=== PATIENT | female | born 1940 | race Hispanic/Latino ===

== ENCOUNTER 2021-08-18 18:01 | Emergency (ER) | payer MEDICARE, BC, OTHER ==
[~2021-08-18] VITALS: Ht 157.5 cm; Wt 68.5 kg
[~2021-08-18 18:01] MED LIST: HYDROCHLOROTH12.5 M1 PO; LEVAQUIN500 MG PO; LIPITOR20 MG PO; METOPROLOL TART50 MG PO; NEXIUM40 MG PO; NORCO 7.5-3251 EACH; PLAVIX75 MG PO; ZETIA10 MG PO
[2021-08-18] MEDS ORDERED: ULTRAM 50MG50 MG PO (20:20)
[2021-08-18 20:30] VITALS: BP 157/71
== END 2021-08-18 20:30 | disposition home or self-care (01) ==
LOC: FSED 18:19
DX: S20.212A Contusion of left front wall of thorax, initial encounter (principal); S00.83XA Contusion of other part of head, initial encounter; S60.222A Contusion of left hand, initial encounter; S60.221A Contusion of right hand, initial encounter; W01.0XXA Fall on same level from slipping, tripping and stumbling without subsequent striking against object, initial encounter; Y93.01 Activity, walking, marching and hiking; Y92.096 Garden or yard of other non-institutional residence as the place of occurrence of the external cause; I10 Essential (primary) hypertension
CPT/HCPCS: 70450; 70486; 71046; 93005; 99283

== ENCOUNTER 2021-10-19 12:30 | Inpatient (IN) | payer MEDICARE, BC ==
[2021-10-16 09:38] LABS: BASOPHILS % 0.3 % (0.0-1.0); EOSINOPHILS # (AUTO) 0.3 (0.0-0.4); EOSINOPHILS % 3.8 % (0.0-6.0); HEMATOCRIT 35.3 % (34.2-44.1); HEMOGLOBIN 11.1 g/dL (12.0-16.0); LYMPHOCYTES # (AUTO) 2.1 (1.0-3.2); LYMPHOCYTES % 29.7 % (18.0-39.1); MEAN CORPUSCULAR HEMOGLOBIN 29.1 pg (28-32); MEAN CORPUSCULAR HGB CONC 31.4 g/dL (31-35); MEAN CORPUSCULAR VOLUME 92.4 fL (81-99); MONOCYTES # (AUTO) 0.5 (0.2-0.8); MONOCYTES % 6.5 % (4.4-11.3); NEUTROPHILS # (AUTO) 4.2 (2.1-6.9); NEUTROPHILS % 59.4 % (38.7-80.0); PLATELET COUNT 293 x10e3/uL (140-360); RED BLOOD COUNT 3.82 x10e6/uL (3.6-5.1); RED CELL DISTRIBUTION WIDTH 16.5 % (11.7-14.4)
[2021-10-16 10:05] LABS: ANION GAP 15.3 mmol/L (8-16); CALCIUM 9.3 mg/dL (8.4-10.2); CREATININE, SERUM 1.18 mg/dL (0.57-1.11); POTASSIUM 4.3 mmol/L (3.5-5.1)
[~2021-10-19] VITALS: Ht 157.5 cm; Wt 68.0 kg
[~2021-10-19 12:30] MED LIST changes: +LOSARTAN POTASS25 MG PO; +LOVAZA1 GM PO; +METFORMIN HCL500 MG PO; +METOPROLOL SUCC25 MG PO; +OMEPRAZOLE40 MG PO; +TRIAMTERENE-HCTZ1 EA PO; +ULTRAM 50MG50 MG PO
[2021-10-19] MEDS ORDERED: GENTAMICIN 80MG/NS 100 ML 200 ML IV ONE (12:51)
[2021-10-19] MEDS ORDERED: LEVOFLOXACIN 500MG/D5W 100ML 100 ML IV ONE (12:51)
[2021-10-19] MEDS ORDERED: ONDANSETRON HCL INJ 2MG/ML 2ML 2 MG/ML VIAL ONE (12:56)
[2021-10-19] MEDS ORDERED: GLYCOPYRROLATE INJ 0.2 MG/ML VIAL ONE (12:56)
[2021-10-19] MEDS ORDERED: ROCURONIUM BROMIDE 10 MG/ML 5ML VIAL IV ONE (12:56)
[2021-10-19] MEDS ORDERED: PROPOFOL IV EMULSION 10 MG/ML 20 ML VIAL ONE (12:56)
[2021-10-19] MEDS ORDERED: EPHEDRINE SULFATE INJ 50 MG/ML VIAL ONE (12:56)
[2021-10-19] MEDS ORDERED: DEXAMETHASONE SOD PHOS INJ 4 MG/ML SDV ONE (12:56)
[2021-10-19] MEDS ORDERED: NEOSTIGMINE 1 MG/ML 10ML VIAL ONE (12:56)
[2021-10-19] MEDS ORDERED: POVIDONE IODINE 0.05% 0.05 % ML PO ONE (12:56)
[2021-10-19] MEDS ORDERED: SEVOFLURANE INHAL SOLN 250 ML PEN BTL ONE (12:56)
[2021-10-19] MEDS ORDERED: LIDOCAINE HCL 2% LOCAL INJ 5 ML SDV VIAL INJ ONE (12:56)
[2021-10-19] MEDS ORDERED: FENTANYL CITRATE/PF 100MCG/2 ML INJ ONE (13:19)
[2021-10-19] MEDS ORDERED: IOPAMIDOL 610MG/1ML 300 MG/ML VIAL IV ONE (13:51)
[2021-10-19] MEDS ORDERED: B&O 60MG R/S 60 MG SUPP PR ONE (13:52)
[2021-10-19] MEDS ORDERED: BUPIVACAINE 0.25% 30ML SDV ONE (14:09)
[2021-10-19] MEDS ORDERED: INDIGOTINDISULFONATE SODIUM 8 MG/ML AMP IJ ONE (14:10)
[2021-10-19] MEDS ORDERED: LIDOCAINE 2% /EPINEPHRINE 20 ML SDV INJ ONE (14:10)
[2021-10-19] MEDS ORDERED: GENTAMICIN SULFATE 40 MG/ML 2 ML VIAL ONE (14:11)
[2021-10-19] MEDS ORDERED: MUPIROCIN 2% OINT 22 GM TUBE ONE (14:11)
[2021-10-19] MEDS ORDERED: MORPHINE SULFATE 1 MG/ML 30ML PCA IV PRN (16:00)
[2021-10-19] MEDS ORDERED: ONDANSETRON HCL INJ 2MG/ML 2ML 2 MG/ML VIAL IV PRN (16:00)
[2021-10-19] MEDS ORDERED: ACETAMINOPHEN/CODEINE 300MG - 30MG TAB PO PRN (16:00)
[2021-10-19] MEDS ORDERED: PHENAZOPYRIDINE HCL 100 MG TAB PO PRN (16:00)
[2021-10-19] MEDS ORDERED: NALOXONE HCL INJ 0.4 MG/ML AMP IV PRN (16:00)
[2021-10-19] MEDS ORDERED: DIPHENHYDRAMINE HCL 25 MG CAP PO PRN (16:00)
[2021-10-19 16:27] LABS: BASOPHILS % 0.4 % (0.0-1.0); EOSINOPHILS # (AUTO) 0.2 (0.0-0.4); EOSINOPHILS % 2.4 % (0.0-6.0); HEMATOCRIT 31.6 % (34.2-44.1); HEMOGLOBIN 9.8 g/dL (12.0-16.0); LYMPHOCYTES # (AUTO) 2.1 (1.0-3.2); LYMPHOCYTES % 27.6 % (18.0-39.1); MEAN CORPUSCULAR HEMOGLOBIN 29.1 pg (28-32); MEAN CORPUSCULAR VOLUME 93.8 fL (81-99); MONOCYTES # (AUTO) 0.3 (0.2-0.8); MONOCYTES % 3.9 % (4.4-11.3); NEUTROPHILS % 65.6 % (38.7-80.0); PLATELET COUNT 252 x10e3/uL (140-360); RED BLOOD COUNT 3.37 x10e6/uL (3.6-5.1); RED CELL DISTRIBUTION WIDTH 16.5 % (11.7-14.4)
[2021-10-19 16:35] LABS: ANION GAP 12.3 mmol/L (8-16); CALCIUM 8.2 mg/dL (8.4-10.2); CREATININE, SERUM 0.92 mg/dL (0.57-1.11); POTASSIUM 4.3 mmol/L (3.5-5.1)
[2021-10-19] MEDS ORDERED: MORPHINE SULFATE 1 MG/ML 30ML PCA ONE (16:48)
[2021-10-19] MEDS: LEVOFLOXACIN 500MG/D5W 100ML 100 ML IV SCH (17:59)
[2021-10-19] MEDS ORDERED: METOPROLOL SUCCINATE 25 MG TAB XL PO SCH (18:15)
[2021-10-19 18:21] VITALS: BP 174/69
[2021-10-19 18:31] VITALS: BP 174/69
[2021-10-19] MEDS: DOCUSATE SODIUM 100 MG CAP PO SCH (18:51)
[2021-10-19] MEDS: LOSARTAN POTASSIUM 25 MG TAB PO SCH (18:51)
[2021-10-19] MEDS: D5.45%NS/KCL 20MEQ 1,000 ML IV SCH (18:51)
[2021-10-19 20:41] VITALS: BP 138/74
[2021-10-19 20:42] VITALS: BP 138/74
[2021-10-20] VITALS (8 sets, daily range): BP systolic 109–171; BP diastolic 46–71
[2021-10-20 05:04] LABS: BASOPHILS % 0.1 % (0.0-1.0); HEMATOCRIT 31.4 % (34.2-44.1); LYMPHOCYTES # (AUTO) 1.1 (1.0-3.2); MEAN CORPUSCULAR HEMOGLOBIN 28.9 pg (28-32); MEAN CORPUSCULAR HGB CONC 31.8 g/dL (31-35); MEAN CORPUSCULAR VOLUME 90.8 fL (81-99); MONOCYTES # (AUTO) 0.5 (0.2-0.8); MONOCYTES % 4.5 % (4.4-11.3); NEUTROPHILS # (AUTO) 8.7 (2.1-6.9); PLATELET COUNT 261 x10e3/uL (140-360); RED BLOOD COUNT 3.46 x10e6/uL (3.6-5.1); RED CELL DISTRIBUTION WIDTH 16.1 % (11.7-14.4)
[2021-10-20] MEDS: D5.45%NS/KCL 20MEQ 1,000 ML IV SCH ×2 (05:29→19:25)
[2021-10-20 05:36] LABS: ANION GAP 12.7 mmol/L (8-16); CALCIUM 8.6 mg/dL (8.4-10.2); CREATININE, SERUM 0.8 mg/dL (0.57-1.11); POTASSIUM 4.7 mmol/L (3.5-5.1)
[2021-10-20] MEDS ORDERED: HYDRALAZINE HCL 20 MG/ML VIAL IV PRN (08:45)
[2021-10-20] MEDS ORDERED: DEXTROSE 50% SYRINGE 50 ML IV PRN (08:45)
[2021-10-20] MEDS ORDERED: LOSARTAN POTASSIUM 25 MG TAB PO SCH (09:00)
[2021-10-20] MEDS ORDERED: METOPROLOL SUCCINATE 25 MG TAB XL PO SCH (09:00)
[2021-10-20] MEDS: DOCUSATE SODIUM 100 MG CAP PO SCH ×2 (09:07→17:20)
[2021-10-20] MEDS: LOSARTAN POTASSIUM 25 MG TAB PO SCH ×2 (09:08→17:20)
[2021-10-20] MEDS: METOPROLOL SUCCINATE 25 MG TAB XL PO SCH ×2 (09:08→17:20)
[2021-10-20] MEDS: AMLODIPINE BESYLATE 10 MG TAB PO SCH (09:12)
[2021-10-20] MEDS: INSULIN LISPRO 100 UNIT/1 ML 3ML VIAL SQ SCH ×4 (11:30→20:27)
[2021-10-20] MEDS ORDERED: MORPHINE SULFATE 1 MG/ML 30ML PCA IV PRN (13:45)
[2021-10-20] MEDS: LEVOFLOXACIN 500MG/D5W 100ML 100 ML IV SCH (15:13)
[2021-10-21 00:11] VITALS: BP 121/45
[2021-10-21 04:00] VITALS: BP 139/59
[2021-10-21 05:06] LABS: BASOPHILS % 0.4 % (0.0-1.0); EOSINOPHILS # (AUTO) 0.3 (0.0-0.4); EOSINOPHILS % 3.7 % (0.0-6.0); HEMATOCRIT 30.3 % (34.2-44.1); HEMOGLOBIN 9.6 g/dL (12.0-16.0); LYMPHOCYTES % 24.3 % (18.0-39.1); MEAN CORPUSCULAR HEMOGLOBIN 29.4 pg (28-32); MEAN CORPUSCULAR HGB CONC 31.7 g/dL (31-35); MEAN CORPUSCULAR VOLUME 92.7 fL (81-99); MONOCYTES # (AUTO) 0.5 (0.2-0.8); MONOCYTES % 5.5 % (4.4-11.3); NEUTROPHILS # (AUTO) 5.3 (2.1-6.9); NEUTROPHILS % 65.9 % (38.7-80.0); PLATELET COUNT 254 x10e3/uL (140-360); RED BLOOD COUNT 3.27 x10e6/uL (3.6-5.1); RED CELL DISTRIBUTION WIDTH 16.5 % (11.7-14.4)
[2021-10-21 05:30] LABS: ANION GAP 12.5 mmol/L (8-16); CALCIUM 8.4 mg/dL (8.4-10.2); CREATININE, SERUM 0.94 mg/dL (0.57-1.11); POTASSIUM 4.5 mmol/L (3.5-5.1)
[2021-10-21] MEDS: INSULIN LISPRO 100 UNIT/1 ML 3ML VIAL SQ SCH ×2 (07:30→11:30)
[2021-10-21 07:46] VITALS: BP 159/63
[2021-10-21 07:49] VITALS: BP 159/63
[2021-10-21] MEDS: DOCUSATE SODIUM 100 MG CAP PO SCH (08:25)
[2021-10-21] MEDS: METOPROLOL SUCCINATE 25 MG TAB XL PO SCH (08:26)
[2021-10-21] MEDS: AMLODIPINE BESYLATE 10 MG TAB PO SCH (08:27)
[2021-10-21] MEDS: LOSARTAN POTASSIUM 25 MG TAB PO SCH (08:28)
[2021-10-21] MEDS ORDERED: PANTOPRAZOLE SOD 40 MG TABEC PO SCH (09:15)
[2021-10-21] MEDS ORDERED: ONDANSETRON HCL 4 MG ORAL DISINTEGRATING TAB PO PRN (10:45)
[2021-10-21 11:08] VITALS: BP 126/51
[2021-10-21] MEDS: LEVOFLOXACIN 500MG/D5W 100ML 100 ML IV SCH (14:00)
[2021-10-21] MEDS ORDERED: LEVOFLOXACIN250 MG PO (15:09)
[2021-10-21] MEDS ORDERED: ULTRAM50 MG PO (15:09)
[2021-10-21] MEDS ORDERED: LEVOFLOXACIN 500 MG TAB PO SCH (15:30)
[2021-10-22] MEDS ORDERED: PANTOPRAZOLE SOD 40 MG TABEC PO SCH (07:30)
== END 2021-10-21 16:25 | disposition home or self-care (01) | DRG 748 ==
LOC: OR 12:30 → MED/SURG 16:29
PROVIDERS: ADMIT Urology; ATTEND Urology
PROC: BT141ZZ Fluoroscopy of Kidneys, Ureters and Bladder using Low Osmolar Contrast (ICD-10-PCS; 2021-10-19)
PROC: 0JUC0KZ Supplement of Pelvic Region Subcutaneous Tissue and Fascia with Nonautologous Tissue Substitute, Open Approach (ICD-10-PCS; principal; 2021-10-19 14:23)
PROC: 0TSD0ZZ Reposition Urethra, Open Approach (ICD-10-PCS; 2021-10-19 14:23)
DX: N81.10 Cystocele, unspecified (principal); N32.89 Other specified disorders of bladder; N39.3 Stress incontinence (female) (male); E11.9 Type 2 diabetes mellitus without complications; I25.10 Atherosclerotic heart disease of native coronary artery without angina pectoris; K21.9 Gastro-esophageal reflux disease without esophagitis; E78.5 Hyperlipidemia, unspecified; I10 Essential (primary) hypertension; R31.29 Other microscopic hematuria; Z91.041 Radiographic dye allergy status; Z91.010 Allergy to peanuts; Z88.0 Allergy status to penicillin; Z91.018 Allergy to other foods; Z87.891 Personal history of nicotine dependence; Z95.1 Presence of aortocoronary bypass graft; Z95.5 Presence of coronary angioplasty implant and graft
CPT/HCPCS: 0223U; 36415; 51700; 71046; 74420; 80048; 82948; 83735; 85025; 93005; 94799; C1713; C1752; C1758; J1100; J1580; J1956; J2001; J2270; J2405; J2710; J3010